=== PATIENT | female | born 1975 | race Caucasian/White ===

== ENCOUNTER 2016-12-11 06:09 | Day surgery (SDC) ==
[2016-12-09 14:56] LABS: URINE MICRO REVIEW NEEDED? NO; URINE SOURCE CLEAN CATCH
[2016-12-09 15:05] LABS: BILIRUBIN URINE NEGATIVE (NEGATIVE); BLOOD URINE NEGATIVE (NEGATIVE); COLOR YELLOW; GLUCOSE URINE NEGATIVE (NEGATIVE); LEUKOCYTES URINE NEGATIVE (NEGATIVE); NITRITE URINE NEGATIVE (NEGATIVE); PH URINE 7.5; PROTEIN URINE NEGATIVE (NEGATIVE); SP GRAVITY URINE 1.012; TURBIDITY URINE CLEAR (CLEAR); UROBILINOGEN URINE NORMAL (NORMAL)
[2016-12-09 15:08] LABS: UR EPITHELIAL CELLS <10 /HPF (<10); URINE BACTERIA 1+ /HPF; URINE RBC <10 /HPF (<10); URINE WBC <10 /HPF (<10)
[2016-12-11] MEDS ORDERED: MURI-LUBE MINERAL OIL ONE (06:32)
[2016-12-11] MEDS ORDERED: NS 1,000 ML ONE (06:33)
[2016-12-11] MEDS ORDERED: BACITRACIN ONE (06:33)
[2016-12-11] MEDS ORDERED: LR 1,000 ML ONE (06:35)
[2016-12-11] MEDS ORDERED: REGLAN ONE (06:35)
[2016-12-11] MEDS ORDERED: PEPCID ONE (06:35)
[2016-12-11] MEDS ORDERED: KEFZOL 1 GM/D5W 50 ML ONE ×2 (06:36→10:31)
[2016-12-11] MEDS ORDERED: FENTANYL ONE (12:18)
[2016-12-11] MEDS ORDERED: VERSED ONE (12:19)
[2016-12-11] MEDS ORDERED: DIPRIVAN 1% ONE (12:19)
[2016-12-11] MEDS ORDERED: SODIUM CHLORIDE 0.9% 10 ML ONE (12:30)
[2016-12-11] MEDS ORDERED: ROBINUL ONE (12:30)
[2016-12-11] MEDS ORDERED: NEOSTIGMINE ONE (12:30)
[2016-12-11] MEDS ORDERED: LUBRIFRESH PM OPH OINTMENT ONE (12:30)
[2016-12-11] MEDS ORDERED: EPHEDRINE ONE (12:30)
[2016-12-11] MEDS ORDERED: ZOFRAN ONE (12:30)
[2016-12-11] MEDS ORDERED: ZEMURON ONE (12:31)
[2016-12-11] MEDS ORDERED: XYLOCAINE-MPF 2% ONE (12:31)
[2016-12-11] MEDS ORDERED: QUELICIN (DOSE) ONE (12:31)
[2016-12-11] MEDS ORDERED: LR 2,000 ML ONE (12:31)
[2016-12-11] MEDS ORDERED: DECADRON ONE (12:31)
[2016-12-11] MEDS ORDERED: NORCO-10 ONE (12:53)
[2016-12-11 13:55] VITALS: BP 111/71
--- NOTE | 2016-12-11 16:41 | OPERATIVE NOTE ---
PROCEDURE DATE: 12/11/2016 PROCEDURE: Second stage breast reconstruction consisting of exchange of right breast reconstructive implant, revision of right reconstructed breast, and nipple-areolar complex reconstructions on the right and left sides. INDICATION FOR PROCEDURE: This patient is a 41-year-old white female who had a breast cancer in the past and was treated with a TRAM flap. That was on her left side and that was in 2001. 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 She is now ready for her second stage reconstruction to make a nipple-areolar complex on the new right reconstructed breast, revise the reconstructed breast on the latissimus side to make it looked more like the TRAM, do a nipple areolar complex reconstruction on the TRAM flap, and we have decided to exchange the implant down to a smaller size implant because it seems like the implant we chose at the time surgery was starting to appear to be too big as the tissues shrunk down. DESCRIPTION OF PROCEDURE: The patient was brought to the operating after she was marked in outpatient surgery in sitting position. She went to the operating room, had general anesthesia, and was prepped and draped. The markings were re-marked and then the first thing that was done was the nipple grafts. Further skin grafts were harvested from the lower abdominal skin incision where her previous TRAM donor site was closed. Two 38 mm nipple areola markers were used to guevara disks of skin that crossed the previous donor site scar and the elliptical excision was 30 cm long. The skin circles were removed as full-thickness skin grafts and then the ellipse was removed with a knife and electrocautery. This donor site was then closed with 2-0 Polysorb interrupted sutures in the fat, a running 3-0 Polysorb deep dermal suture, followed by a running 4- 0 Biosyn subcuticular stitch. Everybody in the operating field then changed their gloves, and then back on the chest a small vertical incision was made in the previous vertical incision on the right side, carried down to the level of the pocket to expose the implant. The implant was slightly adherent, there was no fluid around it. It was decompressed with a needle aspirating of the fluid and was removed from the pocket. An implant that was 1 size down was then placed in the pocket. The implant that was removed was a 168, 450 filled to 465. She was replaced with a 168, 420 filled to 430. No drains were used. The pocket was closed with some interrupted 3-0 Polysorb sutures and then 3-0 Polysorb deep dermal sutures, and then a running 5-0 Biosyn subcuticular stitch. She was put back in the sitting position and the removal of some inferior skin on the inferior portion of the W pattern from her previous mastopexy was marked, imbricated with silk sutures and the amount to be removed was marked. This was then removed as full-thickness skin and dermis. It was temporarily tacked closed with silk. With the patient in sitting position the size and shape of the revision was good. It was closed with 3-0 Polysorb interrupted deep dermal sutures, then a running 4-0 Biosyn subcuticular stitch. On the chest the patient was put in sitting position and the level for the nipples to be placed was marked with a 30 mm nipple marker and Betadine stained paper disks. [place] flaps were designed. They were elevated, rotated on themselves and held in place or sutured together with 5-0 Polysorb interrupted deep dermal sutures, then 5-0 nylon stitches. The skin grafts that were removed from the abdomen were thinned some more and then placed on the recipient bed and held in place with eight 4-0 silks left long enough to make a tie-over bolster. The nipples were allowed to protrude. They were held in place with 5-0 chromic stitches and then bolsters were made out of a nipple protector, mineral oil- soaked cotton and Xeroform gauze and tied down with the silks after the skin graft was run with a 5-0 nylon. Liposuction was done of the right inframammary fold in the right side of the chest and of the mons pubis area to flatten it with the remainder of the abdomen under the TRAM donor site closure. The stab incisions for the liposuction were closed with 5-0 Polysorb interrupted deep dermal sutures, then 5-0 nylon stitches. She tolerated the procedure well. The implant that was used in the patient was a Style 168, 420 implant filled to 430, the serial number was [id number]. She tolerated procedure well and was transferred to the [facility] in good condition.
== END 2016-12-11 13:58 | disposition home or self-care (01) ==
LOC: PAT 06:09
PROVIDERS: ATTEND Surgery Plastic and Reconstructive Surgery
DX: Z42.1 Encounter for breast reconstruction following mastectomy (principal); Z85.3 Personal history of malignant neoplasm of breast
CPT/HCPCS: 81001; 85014; J0330; J0690; J1100; J2250; J2405; J3010; J7030; J7120; J2710